=== PATIENT | male | born 1960 | race American Indian/Alaskan Native ===

== ENCOUNTER 2021-06-07 10:54 | Day surgery (SDC) | payer MEDICARE ==
--- NOTE | 2021-05-29 08:50 | Anesthesia Consultation ---
Anesthesia Consult and Med Hx Date of service: 06/07/21 - Airway Anesthetic Teeth Evaluation: Partials (Missing) ROM Head & Neck: Adequate Mental/Hyoid Distance: Adequate Mallampati Class: Class II Intubation Access Assessment: Possibly Difficult - Pre-Operative Health Status ASA Pre-Surgery Classification: ASA3 Proposed Anesthetic Plan: General, Spinal (Dr. Moore and pt will decide DOS GA vs. 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
[2021-05-29 09:57] LABS: Hematocrit 40.5 % (35.5-45.6); Mean Corpuscular HGB Conc 33 % (32-34); Mean Corpuscular Volume 85 fl (84-94); Platelet Count 317 K/mm3 (140-440); Red Blood Count 4.79 M/mm3 (3.65-5.03); Red Cell Distribution Width 14.8 % (13.2-15.2)
[2021-05-29 10:04] LABS: Alanine Aminotransferase 9 units/L (7-56); Albumin 4.1 g/dL (3.9-5); BUN/Creatinine Ratio 19; Blood Urea Nitrogen 13 mg/dL (9-20); Calcium 9.9 mg/dL (8.4-10.2); Hemolysis Index 39
[~2021-06-07 10:54] MED LIST: ACETAMINOPHEN 500 MG TAB PO NR; BUPIVACAINE/PF (0.25%) 2.5 MG/ML 30 ML VIAL INFILTRATI ONE; CELECOXIB 200 MG CAP PO NR; LACTATED RINGERS 1,000 ML IV SCH; MAGNESIUM OXIDE 400 MG TAB PO NR; NEOMY 40 MG/POLYMYXIN B 200,000 UNITS/ML (GU) AMPULE IR ONE; SODIUM CHLORIDE 0.9% IRR 1,500 ML BOTTLE IR ONE
--- NOTE | 2021-06-07 11:39 | Anesthesia Day of Surgery ---
Anesthesia Day of Surgery - Day of Surgery Patient Examined: Yes Patient H&P Reviewed: Yes Patient is NPO: Yes
[2021-06-07] MEDS ORDERED: oxyCODONE /ACETAMINOPHEN 5-325MG TAB PO PRN (11:44)
[2021-06-07] MEDS ORDERED: HYDROmorphone 1 MG/1 ML INJ IV PRN (11:44)
[2021-06-07] MEDS ORDERED: ONDANSETRON 4 MG/2 ML INJ IV PRN (11:44)
[2021-06-07] MEDS ORDERED: ceFAZolin/STERILE WATER 2 GM/20 ML SYRINGE IV NR (13:00)
[2021-06-07] MEDS ORDERED: NEOMY 40 MG/POLYMYXIN B 200,000 UNITS/ML (GU) AMPULE IR ONE ×2 (13:13→14:41)
[2021-06-07] MEDS ORDERED: BUPIVACAINE/PF (0.25%) 2.5 MG/ML 30 ML VIAL INFILTRATI ONE ×3 (13:13→14:41)
--- NOTE | 2021-06-07 14:06 | Post Operative Note ---
Date of procedure: 06/07/21 Pre-op diagnosis: r ing hernia Post-op diagnosis: same Findings: rih Procedure: repair rih Anesthesia: BECCA Surgeon: DARRON YOUNG Estimated blood loss: minimal Condition: stable Disposition: PACU
--- NOTE | 2021-06-07 14:08 | Discharge Summary ---
Short Stay Discharge Plan Activity: other (no straining ) Weight Bearing Status: Full Weight Bearing Diet: low fat, low cholesterol, low salt Wound: other (ice to wound remove dressing tomorrow ) Special Instructions: other (ice pain ) Follow up with: MARIMAR FAYE MD [Primary Care Provider] - 7 Days DARRON YOUNG MD [Staff Physician] - 7 Days
[2021-06-07] MEDS ORDERED: ONDANSETRON 4 MG/2 ML INJ ONE (14:09)
[2021-06-07] MEDS ORDERED: dexAMETHasone 20 MG/5 ML VIAL ONE (14:09)
[2021-06-07] MEDS ORDERED: LIDOCAINE MPF (2%) 20 MG/1 ML VIAL 5 ML ONE (14:09)
[2021-06-07] MEDS ORDERED: PHENYLEPHRINE/NS 1,000 MCG/10 ML SYRINGE (OR USE) IV ONE (14:09)
[2021-06-07] MEDS ORDERED: fentaNYL 100 MCG/2 ML INJ ONE (14:09)
[2021-06-07] MEDS ORDERED: GLYCOPYRROLATE 0.4 MG/2 ML INJ ONE (14:09)
[2021-06-07] MEDS ORDERED: propofoL 200 MG/20 ML VIAL IV ONE ×2 (14:10→14:27)
[2021-06-07] MEDS ORDERED: SODIUM CHLORIDE 0.9% IRR 1,500 ML BOTTLE IR ONE (14:41)
--- NOTE | 2021-06-07 15:32 | Operative Report ---
DATE OF SURGERY: 06/07/2021 PREOPERATIVE DIAGNOSES: Large right inguinal hernia. POSTOPERATIVE DIAGNOSES: Large right inguinal hernia. PROCEDURES: Right huge direct inguinal hernia repair. SURGEONS: Lanre Blandon MD and Dr. Parrish. ANESTHESIA: General. FINDINGS: This is a gentleman with a large defect with a big bulge in the right inguinal area. He now presents for surgery. DESCRIPTION OF PROCEDURE: The patient was brought to operating room and placed on the operating table. Following induction of anesthesia, placed in supine position, prepped and draped in usual sterile fashion. An oblique incision made over the groin and carried through the skin, superficial fascia. The external oblique aponeurosis was identified. The external ring was identified. This was opened and dissected free. The cord was isolated. The ilioinguinal nerve was isolated and free from damage. A large sac was noted and was reduced in the preperitoneal space. We did not have to open. The patient tolerated the procedure well. Wound was irrigated. Sutures were placed at the pubic tubercle to be used later. We placed a medium plug to reduce the sac and secured it so it would not migrate. Sutures circumferentially were placed to restore a floor, which was nonexistent. There was minimal transversalis fascia. The patient tolerated the procedure well. The cord was placed in anatomical position and there was no excess tension on the cord. External oblique aponeurosis closed with 2-0 Vicryl, superficial fascia with 3-0 Vicryl, skin with clips. He was brought to recovery room. ESTIMATED BLOOD LOSS: Less than 3 mL. TID: [id number] RECEIPT: [id number] DAYRON/SERG
--- NOTE | 2021-06-07 17:12 | Post Anesthesia Evaluation ---
- Post Anesthesia Evaluation Patient Participated: Yes Airway Patent: Yes Stable Respiratory Function: Yes Nausea/Vomiting: No Temp > 96.8F: Yes Pain Manageable: Yes Adequeate Hydration: Yes Anesthesia Complications: No
[2021-06-07 17:59] VITALS: BP 169/73
== END 2021-06-07 17:30 | disposition home or self-care (01) ==
LOC: OR 10:54
PROVIDERS: ATTEND Urology
DX: K40.90 Unilateral inguinal hernia, without obstruction or gangrene, not specified as recurrent (principal); Z20.822 Contact with and (suspected) exposure to COVID-19; J45.909 Unspecified asthma, uncomplicated; F17.210 Nicotine dependence, cigarettes, uncomplicated; F43.10 Post-traumatic stress disorder, unspecified; Z92.3 Personal history of irradiation; Z85.89 Personal history of malignant neoplasm of other organs and systems; Z79.899 Other long term (current) drug therapy; Z98.890 Other specified postprocedural states
CPT/HCPCS: 36415; 49505; 80053; 85027; C1781; J0690; J1100; J1170; J1815; J2370; J2405; J2704; J3010; J3490; J7120; U0003